=== PATIENT | female | born 1985 | race Caucasian/White ===

== ENCOUNTER 2017-08-15 06:59 | Emergency (ER) | payer OTHER ==
[2017-08-15 06:59] VITALS: BMI 21.9
[2017-08-15] MEDS ORDERED: Albuterol-Ipratrop 3 mg / 0.5 (3 ml) UD ONE (07:22)
[2017-08-15] MEDS ORDERED: Albuterol-Ipratrop 3 mg / 0.5 (3 ml) UD INH STA (07:25)
--- NOTE | 2017-08-15 07:30 | C.PDOC ---
History Of Present Illness 32 year old female with a past medical history of asthma presents to the emergency department complaining of 2 days of difficulty breathing with associated chest tightness, worsened today. Patient has had cough, cold, and congestion. (+) Chills but no known fevers. Reports she ran out of meds last week. No prior history of intubations. Patient was hospitalized last year for asthma. Time Seen by Provider: 08/15/17 07:13 Chief Complaint (Nursing): Shortness Of Breath History Per: Patient History/Exam Limitations: no limitations Onset/Duration Of Symptoms: Days (x2) Current Symptoms Are (Timing): Still Present Initiating Event: Upper Respiratory Illness, Out Of Medications Quality: Tightness Past Medical History Reviewed: Historical Data, Nursing Documentation, Vital Signs Vital Signs: Last Vital Signs Temp 97.4 F L 08/15/17 09:57 Pulse 94 H 08/15/17 09:57 Resp 20 08/15/17 09:57 BP 114/76 08/15/17 09:57 Pulse Ox 100 08/15/17 10:21 - Medical History PMH: Anemia, Asthma, Seizures, TIA Denies: Chronic Kidney Disease Surgical History: Tonsillectomy - [facility] Procedures ESOPHAGOGASTRODUODENOSCOPY [EGD] W/CLOSED BIOPSY (03/13/14) PARENTERAL INFUSION OF CONCENTRATED NUT. SUBSTANCE (11/29/12) TONSILLECTOMY (04/12/13) VENOUS CATHETERIZATION NEC (11/29/12) Family History: States: Unknown Family Hx - Social History Hx Tobacco Use: No Hx Alcohol Use: No Hx Substance Use: No - Immunization History Hx Tetanus Toxoid Vaccination: No Hx Influenza Vaccination: No Hx Pneumococcal Vaccination: No Review Of Systems Constitutional: Positive for: Chills. Negative for: Fever ENT: Positive for: Nose Congestion Cardiovascular: Positive for: Chest Pain ("tightness") Respiratory: Positive for: Cough, Shortness of Breath, Wheezing Physical Exam - Physical Exam Appears: No Acute Distress, Other (Uncomfortable) Skin: No Rash Head: Atraumatic, Normacephalic Eye(s): bilateral: PERRL, EOMI Oral Mucosa: Moist Throat: Normal Neck: Supple Chest: Symmetrical, No Tenderness Cardiovascular: Rhythm Regular, No Murmur Respiratory: Decreased Breath Sounds (diffusely) Gastrointestinal/Abdominal: Soft, No Tenderness, No Distention Back: No CVA Tenderness Extremity: No Calf Tenderness, No Swelling Neurological/Psych: Oriented x3, No Other (gross focal deficit) ED Course And Treatment - Laboratory Results Result Diagrams: 08/15/17 08:08 O2 Sat by Pulse Oximetry: 100 (RA) Pulse Ox Interpretation: Normal Medical Decision Making Medical Decision Making: Initial Impression: 32 year old with asthma exacerbation Time: 7:23 Initial Plan: * EKG * CMP * CBC * Chest x-ray * Duoneb treatment x1 * Solu-Medrol 125 mg IV * Peak Flow pre/post treatment 1002pm pt feeling better at this time, lungs cta. discussed with Dr Osuna , will d/c home with medrol dose shon, lizabeth and key. Disposition Discussed With .: Jamil Osuna Doctor Will See Patient In The: Office Counseled Patient/Family Regarding: Studies Performed, Diagnosis, Need For Followup, Rx Given - Disposition Referrals: Jamil Osuna MD [Staff Provider] - Disposition: HOME/ ROUTINE Disposition Time: 10:16 Condition: IMPROVED Additional Instructions: Take medications as prescribed. FOllow up with Dr Osuna in a few days. Return to ER for any worse symptoms. 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 - Scribe Statement The provider has reviewed the documentation as recorded by the Scribe (Lori Wright) All medical record entries made by the Scribe were at my direction and personally dictated by me. I have reviewed the chart and agree that the record accurately reflects my personal performance of the history, physical exam, medical decision making, and the department course for this patient. I have also personally directed, reviewed, and agree with the discharge instructions and disposition.
[2017-08-15 08:14] LABS: BASO % 0.8 % (0.0-2.0); EOS % 0.2 % (0.0-4.0); HEMOGLOBIN 12.3 g/dL (11.0-16.0); LYMPH % 43.4 % (20.0-40.0); MEAN CELL VOLUME 94.8 fL (81.0-99.0); MEAN CORPUSCULAR HEMOGLOBIN 32.7 pg (27.0-31.0); MEAN CORPUSCULAR HGB CONC 34.5 g/dL (33.0-37.0); MEAN PLATELET VOLUME 9.2 fL (7.2-11.7); MONO # 0.6 K/uL (0.0-0.8); MONO % 12.8 % (0.0-10.0); NEUT % 42.8 % (50.0-75.0); NRBC % 0.1 % (0.0-2.0); RBC 3.74 Mil/uL (3.80-5.20); RED CELL DISTRIBUTION WIDTH 13.7 % (11.5-14.5); WHITE BLOOD COUNT 4.7 K/uL (4.8-10.8)
--- NOTE | 2017-08-15 08:40 | RAD ---
HISTORY: COMPARISON: 05/28/2015. TECHNIQUE: Chest PA and lateral FINDINGS: LINES AND TUBES: None. LUNG AND PLEURA: The lungs are well inflated and clear. HEART AND MEDIASTINUM: The heart is not enlarged. The hilar and mediastinal contours are within normal limits. SKELETAL STRUCTURES: The bony structures are within normal limits for the patient's age. VISUALIZED UPPER ABDOMEN: Normal. OTHER FINDINGS: None. IMPRESSION: No active pulmonary disease.
[2017-08-15 09:58] VITALS: BP 114/76; PULSE 94; RESP 20; TEMP 97.4
[2017-08-15 10:03] VITALS: O2SAT 100
--- NOTE | 2017-08-17 17:53 | CARD ---
APPROVED REPORT EKG Measurement Heart [id number] NE [id number] <Conclusion> Normal sinus rhythm Biatrial enlargement Nonspecific ST and T wave abnormality Abnormal ECG
== END 2017-08-15 10:39 | disposition home or self-care (01) ==
LOC: C.ER 06:59
DX: J45.909 Unspecified asthma, uncomplicated (principal)
CPT/HCPCS: 71046; 84703; 85025; 96374; 99284; J2930